=== PATIENT | female | born 1995 | race Caucasian/White ===

== ENCOUNTER 2019-04-22 23:00 | Inpatient (IN) ==
[2019-04-22] MEDS ORDERED: miSOPROStoL 25 MCG TABLET PO PRN (23:06)
[2019-04-22] MEDS ORDERED: Metoclopramide 10 MG/2 ML VIAL IVP PRN (23:06)
[2019-04-22] MEDS ORDERED: Ondansetron 4 MG/2 ML VIAL IVP PRN (23:06)
[2019-04-22] MEDS ORDERED: Naloxone 0.4 MG/ML INJ IVP PRN (23:06)
[2019-04-22] MEDS ORDERED: Famotidine 20 MG/2 ML VIAL IVP PRN (23:06)
[2019-04-22] MEDS ORDERED: *HR* Nalbuphine 10 MG/ML AMPUL IVP PRN (23:06)
[2019-04-22] MEDS ORDERED: Lidocaine 1% 20 ML MDV INFILT PRN (23:06)
[2019-04-22] MEDS ORDERED: Ringers Solution, Lactated 1,000 ML IVC SCH (23:15)
[2019-04-22 23:50] LABS: Basophils % 0.2 %; Eosinophils # 0.1 K/mcL (0.0-0.6); Eosinophils % 0.8 %; Hematocrit 34.2 % (35.3-44.9); Hemoglobin 11.1 g/dL (11.5-15.4); Immature Granulocytes % 0.4 % (0-4); Lymphocytes # 2.2 K/mcL (0.6-4.6); Lymphocytes % 24.5 %; Mean Corpuscular HGB Conc 32.5 g/dL (31.6-35.5); Mean Corpuscular Hemoglobin 30.8 pg (28.0-33.3); Mean Platelet Volume 13.1 fL (9.4-12.4); Monocytes # 0.9 K/mcL (0.0-1.3); Monocytes % 10.2 %; Neutrophils # 5.9 K/mcL (1.6-8.9); Platelet Count 182 K/mcL (140-400); Red Cell Distribution Width 15.5 % (11.5-14.5); Segmented Neutrophils % 63.9 %; White Blood Count 9.2 K/mcL (4.3-11.1)
[2019-04-23 00:19] LABS: Amphetamine Screen,Urine Negative ng/mL (Cutoff=1000); Barbiturate Screen,Urine Negative ng/mL (Cutoff=200); Benzodiazepines Screen,Urine Negative ng/mL (Cutoff=200); Cannabinoid Screen,Urine Negative ng/mL (Cutoff = 50); Cocaine Screen,Urine Negative ng/mL (Cutoff= 300); Opiate Screen,Urine Negative ng/mL (Cutoff=300); Phencyclidine Screen,Urine Negative ng/mL (Cutoff=25)
[2019-04-23] MEDS ORDERED: Epidural Premix (fent/bupiv) 110 ML EP SCH (05:15)
[2019-04-23] MEDS ORDERED: EPHEDrine 50 MG/ML VIAL ONE (07:52)
[2019-04-23] MEDS ORDERED: Water for inj. (sterile) 10 ML ONE (07:53)
[2019-04-23] MEDS ORDERED: Oxytocin 20 units/ LR 1000 mL 20 UNIT/1,000 ML BAG IVC SCH ×3 (08:45→15:47)
[2019-04-23] MEDS ORDERED: Methylergonovine 0.2 MG/ML AMPUL IM ONE (12:45)
[2019-04-23] MEDS ORDERED: Benzocaine/Menthol 56 GM AEROSOL SPRAY TP PRN (15:47)
[2019-04-23] MEDS ORDERED: Oxytocin 20 units/ LR 1000 mL 20 UNIT/1,000 ML BAG IVC ONE (15:47)
[2019-04-23] MEDS ORDERED: Measles/Mumps/Rubella Vacc 0.5 ML VIAL SQ PRN (15:47)
[2019-04-23] MEDS ORDERED: Rho Immune Globulin 1,500 UNIT SYRINGE IM PRN (15:47)
[2019-04-23] MEDS ORDERED: Lanolin 28 GM TUBE TP PRN (15:47)
[2019-04-23] MEDS ORDERED: Acetaminophen 325 MG TABLET PO PRN (15:47)
[2019-04-24] MEDS: Ibuprofen 600 MG TABLET PO PRN ×2 (01:31→08:25)
[2019-04-24 07:14] LABS: Basophils % 0.2 %; Eosinophils # 0.2 K/mcL (0.0-0.6); Eosinophils % 1.2 %; Hematocrit 32.4 % (35.3-44.9); Hemoglobin 10.5 g/dL (11.5-15.4); Immature Granulocytes % 0.6 % (0-4); Lymphocytes # 2.1 K/mcL (0.6-4.6); Lymphocytes % 16.9 %; Mean Corpuscular HGB Conc 32.4 g/dL (31.6-35.5); Mean Corpuscular Volume 95.6 fL (83.0-100.0); Monocytes % 7.8 %; Platelet Count 154 K/mcL (140-400); Red Blood Count 3.39 M/mcL (3.82-4.97); Red Cell Distribution Width 15.9 % (11.5-14.5); Segmented Neutrophils % 73.3 %; White Blood Count 12.2 K/mcL (4.3-11.1)
[2019-04-24 08:00] VITALS: BP 96/58
[2019-04-24] MEDS ORDERED: Prenatal Vit/FA 1 EACH TABLET PO SCH (09:00)
== END 2019-04-24 14:45 | disposition home or self-care (01) | DRG 807 ==
LOC: 1NENULAB 23:03 → 1NENUOBS 04-23 15:43
PROVIDERS: ADMIT Student in an Organized Health Care Education/Training Program; ATTEND Student in an Organized Health Care Education/Training Program